=== PATIENT | female | born 2000 | race African-American/Black ===

== ENCOUNTER 2019-02-28 22:56 | Emergency (ER) | payer OTHER | END 2019-03-01 01:20 | disposition left against medical advice (07) | LOC: ERS 22:56 | DX: Z53.21 Procedure and treatment not carried out due to patient leaving prior to being seen by health care provider (principal) ==

== ENCOUNTER 2019-03-02 09:37 | Emergency (ER) | payer OTHER, SELFPAY ==
[2019-03-02 10:24] LABS: Bacteria/HPF 1+ HPF (None Seen); Bilirubin Negative (Negative); Blood, Urine 1+ (Negative); Clarity Clear (Clear); Glucose, Urine (Dipstick) Normal (Negative); Leukocyte 500 Leu/uL (Negative); Nitrite Negative (Negative); Protein, Urine (Dipstick) 20 mg/dL (Neg-Trace); Squamous Epithelial 0-3 HPF (0-3); WBC/HPF Greater than 50 HPF (0-3)
[2019-03-02 11:02] LABS: Pregnancy Test - Urine (BHCG) Negative (Negative); Pregu Control Background? CLEAR/WHITE (CLR/WHITE); Pregu Control Bar Appear? YES (CONTROL BAR); Specific Gravity 1.019 (1.002-1.036)
[2019-03-02] MEDS ORDERED: Azithromycin 250 MG TAB ONE (11:14)
[2019-03-02] MEDS ORDERED: Lidocaine 1% PF 5 ML VIAL ONE (11:15)
[2019-03-02] MEDS ORDERED: cefTRIAXone\\ROCEPHIN 1 GM VIAL ONE (11:15)
== END 2019-03-02 11:42 | disposition home or self-care (01) ==
LOC: ERS 09:37
DX: N39.0 Urinary tract infection, site not specified (principal)
CPT/HCPCS: 81003; 81015; 81025; 96372; 99283; J0696; J2001

== ENCOUNTER 2019-03-20 11:56 | Emergency (ER) | payer SELFPAY ==
[2019-03-20 12:28] LABS: Bilirubin Negative (Negative); Blood, Urine 1+ (Negative); Clarity Clear (Clear); Glucose, Urine (Dipstick) Normal (Negative); Leukocyte 500 Leu/uL (Negative); Nitrite Negative (Negative); Protein, Urine (Dipstick) 20 mg/dL (Neg-Trace); Urobilinogen Normal mg/dL (Less than 2)
[2019-03-20 12:31] LABS: Pregnancy Test - Urine (BHCG) Negative (Negative); Pregu Control Background? CLEAR/WHITE (CLR/WHITE); Pregu Control Bar Appear? YES (CONTROL BAR); Specific Gravity 1.025 (1.002-1.036)
[2019-03-20 12:47] LABS: Trichomonas/HPF 1+ HPF (None Seen)
[2019-03-20 12:48] LABS: Bacteria/HPF Rare-Few HPF (None Seen); WBC/HPF 21-50 HPF (0-3)
[2019-03-20 13:11] LABS: #Basophils 0.1 thou/uL (0.0-0.2); #Lymphocytes 3.1 thou/uL (1.20-3.40); #Monocytes 0.3 thou/uL (0.11-0.59); #Neutrophils 4.8 thou/uL (1.40-6.50); %Eosinophils 0.3 % (0.0-10.0); %Lymphocytes 37.2 % (28.0-48.0); %Monocytes 3.2 % (0.0-4.0); %Neutrophils 58.3 % (31.0-61.0); Hemoglobin 13.7 g/dL (12.0-16.0); Mean Corpuscular HGB CONC 32.3 g/dL (32.0-36.0); Mean Corpuscular Hemoglobin 25.5 pg (25.0-35.0); Mean Corpuscular Volume 79.1 fL (78.0-98.0); Mean Platelet Volume 9.9 fL (7.4-10.4); Platelet Count 215 thou/uL (130-400); RBC Distribution Width 18.5 % (11.5-14.5); Red Blood Cell (RBC) Count 5.36 mill/uL (4.00-5.20); White Blood Cell (WBC) Count 8.3 thou/uL (4.8-10.8)
[2019-03-20] MEDS ORDERED: cefTRIAXone\\ROCEPHIN 250 MG VIAL ONE (14:39)
[2019-03-20] MEDS ORDERED: Azithromycin 250 MG TAB ONE (14:39)
[2019-03-20] MEDS ORDERED: Fentanyl 100 MCG/2 ML VIAL ONE (15:40)
[2019-03-20] MEDS ORDERED: Ondansetron ODT 4 MG TAB ONE (15:42)
[2019-03-20] MEDS ORDERED: metroNIDAZOLE 250 MG TAB ONE (15:42)
[2019-03-25 22:39] LABS: Chlamydia by PCR Inconclusive (NotDetected); GC by PCR Inconclusive (NotDetected)
== END 2019-03-20 16:55 | disposition home or self-care (01) ==
LOC: ERS 11:56
DX: A59.01 Trichomonal vulvovaginitis (principal); N93.8 Other specified abnormal uterine and vaginal bleeding
CPT/HCPCS: 36415; 81003; 81015; 81025; 85025; 87480; 87491; 87510; 87591; 87660; 96372; 99284; J0696; J3010; Q0162

== ENCOUNTER 2021-03-03 08:38 | Emergency (ER) | payer SELFPAY ==
[2021-03-03] MEDS ORDERED: Ketorolac Tromethamine 30 MG/ML VIAL ONE (10:09)
== END 2021-03-03 11:20 | disposition home or self-care (01) ==
LOC: ERS 08:38
DX: M25.562 Pain in left knee (principal); X50.1XXA Overexertion from prolonged static or awkward postures, initial encounter
CPT/HCPCS: 96372; J1885